=== PATIENT | male | born 1970 | race Caucasian/White ===

== ENCOUNTER → 2021-07-27 | Outpatient (CLI) | payer MEDICAID, OTHER ==
--- NOTE | 2021-07-27 10:10 | Diagnostic Imaging Report ---
INDICATION: Lung abnormality. COMPARISON: I have no priors. FINDINGS: There is a small mass in the right lower lobe posterolaterally measuring 2.3 cm in long axis. If not already worked up, correlative chest CT recommended. Hilar and mediastinal contours were normal. The lungs are free of pneumonia or edema. No free air beneath the diaphragms. IMPRESSION: Indeterminate right lower lobe lung mass. Chest CT recommended if this has not already been performed at an outside facility. Dictated by: Dictated on workstation # [id number]
== END ==
LOC: RAD 08:13
PROVIDERS: ATTEND Nurse Practitioner Family
DX: R91.8 Other nonspecific abnormal finding of lung field (principal)
CPT/HCPCS: 71046

== ENCOUNTER → 2021-08-04 | Outpatient (CLI) | payer MEDICAID ==
--- NOTE | 2021-08-04 13:18 | Diagnostic Imaging Report ---
PET/CT. INDICATION: Lung mass TECHNIQUE: PET/CT imaging was obtained from the base of the skull through the pelvis after the administration of 13.0 mCi of F-18 fluorodeoxyglucose in the right antecubital fossa. Limited CT imaging was utilized for localization and attenuation correction purposes. The low energy CT utilized for attenuation correction is not considered to be of high enough spatial resolution to allow in and of itself a separate anatomical analysis. Height is 6'. Weight 160 pounds Blood glucose level 123. There are no prior head CT exams or cross-sectional imaging studies available for comparison. The plain film examination of the chest performed on 07/27/2021 noted a 2.3 cm mass in the right lung base. This finding was also present on the prior plain film chest exam of 05/13/2021 from [facility]. On this study the lesion in the right lung base is again identified. This area is not hypermetabolic with a maximum SUV of 1.1. Consequently I do suspect that this is a benign process. If more distant exams are available, they would be helpful for comparison. If there are no previous studies, then a followup CT chest exam in 6 months should be obtained. There is a small focus of slight increased hypermetabolic activity in the right hilum. This has a maximum SUV of 2.6. There is no definite correlate seen on the CT images and this may be secondary to vascular structure.. There is asymmetric uptake of the radiopharmaceutical by the left lobe of the thyroid. The left lobe does not appear to be enlarged and has a maximum measurement of 3.8. There is only mild uptake by the right lobe of the thyroid. There is no definite mass identified but ultrasound of the thyroid gland would be recommended for further study. There is no other hypermetabolic activity to suggest the presence of malignancy. Physiologic activity is seen in the brain, the kidneys, the bowel and the bladder. The CT images failed to show any sign of an acute abnormality. IMPRESSION: 1. The nodule in the right lower lobe seen previously is not hypermetabolic and most likely benign. Recommendations as above. 2. The asymmetry of the uptake within the left thyroid gland compared to the right is of uncertain etiology. There is no abnormality identified on the CT images but ultrasound would be recommended for further study. 3. There is no other hypermetabolic activity to suggest the presence of malignancy. 4. There is no sign of an acute abnormality. Dictated by: Dictated on workstation # [id number]
== END ==
LOC: RAD 09:45
PROVIDERS: ATTEND Nurse Practitioner Family
DX: R91.8 Other nonspecific abnormal finding of lung field (principal)
CPT/HCPCS: 78815; A9552

== ENCOUNTER 2022-08-03 17:34 | Emergency (ER) | payer MEDICAID ==
[~2022-08-03] VITALS: Ht 182.8 cm; Wt 58.9 kg
[2022-08-03] MEDS ORDERED: ONDANSETRON 4 MG/2 ML (SDV) Z0FRAN IVP ONE (17:45)
[2022-08-03 17:51] LABS: BASOPHILS % (AUTO) 0 % (0-10); EOSINOPHILS % (AUTO) 1 % (0-10); HEMATOCRIT 40 % (40-54); HEMOGLOBIN 14.1 g/dL (13.3-17.7); LYMPHOCYTES # (AUTO) 1.5 10^3/uL (1.0-4.0); LYMPHOCYTES % (AUTO) 28 % (12-44); MEAN CORPUSCULAR HEMOGLOBIN 31 pg (25-34); MEAN CORPUSCULAR HGB CONC 36 g/dL (32-36); MEAN CORPUSCULAR VOLUME 85 fL (80-99); MEAN PLATELET VOLUME 9.9 fL (9.0-12.2); MONOCYTES # (AUTO) 0.4 10^3/uL (0.0-1.0); MONOCYTES % (AUTO) 7 % (0-12); NEUTROPHILS # (AUTO) 3.6 10^3/uL (1.8-7.8); NEUTROPHILS % (AUTO) 65 % (42-75); PLATELET COUNT 196 10^3/uL (130-400); WHITE BLOOD COUNT 5.5 10^3/uL (4.3-11.0)
[2022-08-03] MEDS ORDERED: fentaNYL INJ 100 MCG/2 ML AMP IVP ONE (18:00)
[2022-08-03] MEDS ORDERED: NS IV 1000 ML 1,000 ML IV SCH (18:00)
[2022-08-03 18:02] LABS: ALBUMIN 3.9 GM/DL (3.2-4.5)
[2022-08-03 18:03] LABS: POTASSIUM 3.6 MMOL/L (3.6-5.0)
[2022-08-03 18:04] LABS: CALCIUM 8.7 MG/DL (8.5-10.1)
[2022-08-03 18:05] LABS: INR 1.2 (0.8-1.4); PROTHROMBIN TIME PATIENT 15.4 SEC (12.2-14.7); TOTAL PROTEIN 6.2 GM/DL (6.4-8.2)
[2022-08-03 18:07] LABS: BILIRUBIN,TOTAL 0.4 MG/DL (0.1-1.0)
[2022-08-03 18:09] LABS: CREATININE SERUM 1.2 MG/DL (0.60-1.30)
--- NOTE | 2022-08-03 18:09 | ED Chest Pain ---
General Chief Complaint: Chest Pain Stated Complaint: CHEST PAIN Nursing Triage Note: PT TO RM 10 BY WC WITH COMPLAINT OF CP. STATES STARTED WITH IN THE LAST HOUR. PT IS COMPLAINIG OF CP, SOA, DIZZINESS. HAD APPENDIX TAKEN OUT TWO WEEKS AGO. LAST USED COCAINE A WEEK AGO. Source: patient Exam Limitations: no limitations (CHRISTINE CELAYA MD) History of Present Illness Date Seen by Provider: Aug 03, 2022 Time Seen by Provider: 17:44 Initial Comments This 52-year-old gentleman presents to the emergency room by private vehicle with complaint of severe chest pain that is stabbing in nature just left of the sternum. Onset was about 45 minutes prior to my interview. He rates the pain as 10/10. He has had some associated dizziness and nausea. He has several issues in his recent past medical history that may be contributing. He reports appendectomy at [facility] on July 23. He has had diffuse abdominal pain ever since that surgery. He also reports using IV cocaine about 1 week ago and drinking a shot of hard alcohol today. He reports a history of lung nodules and states his most recent imaging showed an increase in size. He also is a type II diabetic who has not taken any insulin for the past week. (CHRISTINE CELAYA MD) Initial Comments Agree with history (SOM SAGE MD) Allergies and Home Medications Allergies Coded Allergies: No Known Drug Allergies (Unverified , 08/03/22) Patient Home Medication List Home Medication List Reviewed: Yes (CHRISTINE CELAYA MD) Home Medication List Reviewed: Yes (SOM SAGE MD) Review of Systems Review of Systems Constitutional: no symptoms reported EENTM: No Symptoms Reported Respiratory: See HPI, Shortness of Air Cardiovascular: See HPI, Chest Pain, Lightheadedness Gastrointestinal: See HPI, Nausea Genitourinary: No Symptoms Reported Musculoskeletal: no symptoms reported Skin: no symptoms reported Psychiatric/Neurological: See HPI Endocrine: No Symptoms Reported Hematologic/Lymphatic: No Symptoms Reported (CHRISTINE CELAYA MD) Past Wqamiig-Xxazjd-Dueiub Hx Patient Social History Tobacco Use?: Yes Tobacco type used: Cigarettes Smoking Status: Current Everyday Smoker Use of E-Cig and/or Vaping dev: No Substance use?: Yes Substance type: Opiates/Opioids Additional substance use comme: COCAINE Alcohol Use?: No Pt feels they are or have been: No (CHRISTINE CELAYA MD) Past Medical History Surgeries: Yes Appendectomy Respiratory: Yes (Pulmonary nodule) Cardiac: No Neurological: No Reproductive Disorders: No Genitourinary: No Gastrointestinal: Yes Musculoskeletal: No Endocrine: Yes Diabetes, Insulin dep (Type II) HEENT: No Cancer: No Psychosocial: Yes (Polysubstance abuse) Integumentary: No (CHRISTINE CELAYA MD) Physical Exam Vital Signs Vital Signs - First Documented 08/03/22 17:34 Pulse 80 Resp 31 B/P (MAP) 117/89 (98) Pulse Ox 100 O2 Delivery Room Air (SOM SAGE MD) Vital Signs Capillary Refill : Less Than 3 Seconds (CHRISTINE CELAYA MD) Height, Weight, BMI Height: '" Weight: lbs. oz. kg; 17.00 BMI Method: General Appearance: WD/WN, Moderate Distress, Thin HEENT: PERRL/EOMI, Normal ENT Inspection, Other (Moist mucous membrane) Neck: Normal Inspection; No JVD Respiratory: Chest Non Tender, Lungs Clear, Normal Breath Sounds, No Accessory Muscle Use, No Respiratory Distress Cardiovascular: Regular Rate, Rhythm, No Edema, No Murmur Gastrointestinal: Soft; No Distended; Guarding, Tenderness (Diffuse), Other (Incisions and bruising appear to be healing as expected for postoperative day 11) Extremity: Normal Inspection, No Pedal Edema Neurologic/Psychiatric: Alert, Oriented x3, No Motor/Sensory Deficits, Normal 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/Affect, 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 Norm as Tested Skin: Normal Color, Warm/Dry (CHRISTINE CELAYA MD) Gastrointestinal: Tenderness (Diffuse) (SOM SAGE MD) Progress/Results/Core Measures Results/Orders Lab Results Laboratory Tests Test 08/03/22 17:35 08/03/22 18:53 Range/Units White Blood Count 5.5 4.3-11.0 10^3/uL Red Blood Count 4.63 4.30-5.52 10^6/uL Hemoglobin 14.1 13.3-17.7 g/dL Hematocrit 40 40-54 % Mean Corpuscular Volume 85 80-99 fL Mean Corpuscular Hemoglobin 31 25-34 pg Mean Corpuscular Hemoglobin Concent 36 32-36 g/dL Red Cell Distribution Width 12.8 10.0-14.5 % Platelet Count 196 130-400 10^3/uL Mean Platelet Volume 9.9 9.0-12.2 fL Immature Granulocyte % (Auto) 0 % Neutrophils (%) (Auto) 65 42-75 % Lymphocytes (%) (Auto) 28 12-44 % Monocytes (%) (Auto) 7 0-12 % Eosinophils (%) (Auto) 1 0-10 % Basophils (%) (Auto) 0 0-10 % Neutrophils # (Auto) 3.6 1.8-7.8 10^3/uL Lymphocytes # (Auto) 1.5 1.0-4.0 10^3/uL Monocytes # (Auto) 0.4 0.0-1.0 10^3/uL Eosinophils # (Auto) 0.0 0.0-0.3 10^3/uL Basophils # (Auto) 0.0 0.0-0.1 10^3/uL Immature Granulocyte # (Auto) 0.0 0.0-0.1 10^3/uL Prothrombin Time 15.4 H 12.2-14.7 SEC INR Comment 1.2 0.8-1.4 Activated Partial Thromboplast Time 43 H 24-35 SEC D-Dimer 0.31 0.00-0.49 UG/ML Sodium Level 134 L 135-145 MMOL/L Potassium Level 3.6 3.6-5.0 MMOL/L Chloride Level 100 98-107 MMOL/L Carbon Dioxide Level 23 21-32 MMOL/L Anion Gap 11 5-14 MMOL/L Blood Urea Nitrogen 12 7-18 MG/DL Creatinine 1.20 0.60-1.30 MG/DL Estimat Glomerular Filtration Rate 72 BUN/Creatinine Ratio 10 Glucose Level 322 H 70-105 MG/DL Calcium Level 8.7 8.5-10.1 MG/DL Corrected Calcium 8.8 8.5-10.1 MG/DL Magnesium Level 2.0 1.6-2.4 MG/DL Total Bilirubin 0.4 0.1-1.0 MG/DL Aspartate Amino Transf (AST/SGOT) 80 H 5-34 U/L Alanine Aminotransferase (ALT/SGPT) 41 0-55 U/L Alkaline Phosphatase 87 40-136 U/L Myoglobin 30.6 10.0-92.0 NG/ML Troponin I < 0.028 <0.028 NG/ML C-Reactive Protein High Sensitivity 0.11 0.00-0.50 MG/DL Total Protein 6.2 L 6.4-8.2 GM/DL Albumin 3.9 3.2-4.5 GM/DL Lipase 156 H 8-78 U/L Serum Alcohol < 10 <10 MG/DL Urine Opiates Screen NEGATIVE NEGATIVE Urine Oxycodone Screen NEGATIVE NEGATIVE Urine Methadone Screen NEGATIVE NEGATIVE Urine Propoxyphene Screen NEGATIVE NEGATIVE Urine Barbiturates Screen NEGATIVE NEGATIVE Ur Tricyclic Antidepressants Screen NEGATIVE NEGATIVE Urine Phencyclidine Screen NEGATIVE NEGATIVE Urine Amphetamines Screen NEGATIVE NEGATIVE Urine Methamphetamines Screen NEGATIVE NEGATIVE Urine Benzodiazepines Screen NEGATIVE NEGATIVE Urine Cocaine Screen POSITIVE H NEGATIVE Urine Cannabinoids Screen NEGATIVE NEGATIVE (SOM SAGE MD) My Orders Orders - SOM SAGE MD Iohexol Injection (Omnipaque 350 Mg/Ml 1 (08/03/22 18:30) Received Contrast (Hold Metformin- Contr (08/03/22 18:30) Sodium Chloride Flush (Catheter Flush Sy (08/03/22 18:30) Iohexol Injection (Omnipaque 350 Mg/Ml 1 (08/03/22 18:45) Received Contrast (Hold Metformin- Contr (08/03/22 18:45) Ns (Ivpb) (Sodium Chloride 0.9% Ivpb Bag (08/03/22 18:45) Ketorolac Injection (Toradol Injection) (08/03/22 19:00) Ketorolac Injection (Toradol Injection) (08/03/22 19:15) (OSM SAGE MD) Medications Given in ED Current Medications Medications Dose Ordered Sig/Sophie Route Start Time Stop Time Status Last Admin Dose Admin Aspirin 324 mg ONCE ONCE PO 08/03/22 18:15 08/03/22 18:16 DC 08/03/22 18:22 324 MG Fentanyl Citrate 75 mcg ONCE ONCE IVP 08/03/22 18:00 08/03/22 18:01 DC 08/03/22 18:09 75 MCG Iohexol 100 ml ONCE ONCE IV 08/03/22 18:30 08/03/22 18:31 DC 08/03/22 18:40 80 ML Ketorolac Tromethamine 15 mg ONCE ONCE IVP 08/03/22 19:00 08/03/22 19:01 DC 08/03/22 19:19 15 MG Ondansetron HCl 8 mg ONCE ONCE IVP 08/03/22 17:45 08/03/22 17:46 DC 08/03/22 18:06 8 MG Sodium Chloride 10 ml NEEDED PRN IV 08/03/22 18:30 08/03/22 18:41 10 ML Sodium Chloride 100 ml ONCE ONCE IV 08/03/22 18:45 08/03/22 18:46 DC 08/03/22 18:41 80 ML (SOM SAGE MD) Vital Signs/I&O 08/03/22 17:34 Pulse 80 Resp 31 B/P (MAP) 117/89 (98) Pulse Ox 100 O2 Delivery Room Air (SOM SAGE MD) Blood Pressure Mean: 98 Progress Progress Note : Time: 18:12 Progress Note Patient was interviewed and examined. Chest pain work-up is underway. We anticipate including a CT angio of the chest with not angio abdomen pelvis CT with to evaluate his chest and abdominal pain. Fentanyl 75 mcg is being given for pain control. Zofran was ordered for nausea. Aspirin will also be administered. Report was given to Dr. Kerns for shift change. (CHRISTINE CELAYA MD) Progress Note : Progress Note Sign out from day physician: - ACS rule out - UDS is positive for cocaine - Gave Toradol for pain - CT Chest/ ABD: non-acute findings as per report. Ileus versus gastroenteritis - Discussed with hospitalist and surgeon, advised to follow up with surgeon in [place] who did the surgery. There is no acute findings on CT for admission. - Advised Naproxen for pain, and has percocet at home for severe pain. Pt also has Zofran and Pepcid at home - [place] diet advised, follow-up with surgeon in [place] who did the surgery, adequate fluid hydration advised, prescription for Reglan to be taken every 8 hours as needed for nausea and vomiting. Patient has Zofran at home and can alternate with this for nausea and vomiting. Advised thnm-npr-pqzaiip naproxen capsules 440 mg twice a day for pain. Patient has pain medication that was g iven after discharge from his surgery, and advised to take that for severe pain. Follow-up with PCP and surgeon within the next 3 to 5 days. Return to ER as needed. -The patient was seen in the ED, and treated appropriately to presentation at a specific point in time. Patient is informed that there is a possibility that disease and illness can evolve and change in acuity rapidly or slowly after patient is discharged from the ER. Precautionary advice given to the patient for immediate return to ER if symptoms worsen or do not resolve, and to seek emergency care sooner rather than later. Pt also advised on the importance of PCP follow up and compliance with management and follow up plan with PCP and/or specialist, as this is part of the management plan. Pt verbally expressed understanding. (SOM SAGE MD) Initial ECG Impression Date: Aug 03, 2022 Initial ECG Impression Time: 17:39 Initial ECG Rate: 73 Initial ECG Rhythm: Normal Sinus Initial ECG Intervals: Normal Comment Normal sinus rhythm with no ST elevation or depression. No abnormal intervals or axis deviation. (CHRISTINE CELAYA MD) Diagnostic Imaging Diagonstic Imaging: Xray, CT Plain Films/CT/US/NM/MRI: chest, abdomen Comments [facility]. [place], [place] NAME: [facility] REC#: [id number] PT STATUS: REG ER : 1970 PHYSICIAN: CHRISTINE CELAYA MD ADMIT DATE: 08/03/22/ER Signed Date of Exam:08/03/22 CT DAISHA CHEST/NOANG ABD-PELV W INDICATION: 52-year-old male presents with chest pain, shortness of breath, and dizziness. Patient is status post appendectomy two weeks prior to the study. EXAMINATION: CTA chest, abdomen, and pelvis TECHNIQUE: Thin axial sections through the chest, abdomen, and pelvis are obtained following intravenous contrast bolus. Multiplanar MIP images were reconstructed and reviewed. All CT scans use one or more of the following dose optimizing techniques: Automated exposure control, MA and/or KvP adjustment based on patient size and exam type or iterative reconstruction. COMPARISONS: None. FINDINGS: There is no axillary adenopathy. There is also no mediastinal or hilar adenopathy. Cardiac contour is normal. Thoracic aortic contour is also normal with no evidence of aneurysm or dissection. Pulmonary outflow tract as well as the right and left pulmonary arteries, their segmental and subsegmental branches are patent with no evidence of intraluminal thrombus to suggest pulmonary embolism. Lungs are essentially clear with no consolidation, effusion, or pneumothorax. There is a 17 mm pleural-based nodule in the lateral right lower lobe. Liver shows uniform attenuation. Gallbladder is nondistended. Spleen and GE junction are normal. Stomach and duodenal sweep are unremarkable. Paucity of mesenteric fat as well as beam hardening artifact limit assessment of the abdomen and pelvis. Pancreas shows sharp margins. Adrenals are normal. Kidneys appear normal in size, position, and contour with symmetrical perfusion and excretion of contrast. Both ureters are seen intermittently through their course and appear grossly unremarkable. Filled bladder is also normal. Nonopacified loops of small bowel show some fluid-filled loops with a few scattered air-fluid levels, but no significant distention. Large bowel contains a moderate amount of fecal load. Clips in the right lower quadrant are consistent with the patient's known history of recent appendectomy. There is no definite free air, free fluid, or adenopathy. Bone windows show no overall gross abnormalities. There are some multilevel hypertrophic facet changes. IMPRESSION: 1. No CT angiographic evidence for aortic aneurysm, dissection, or pulmonary embolism. 2. Lungs are clear with no consolidation, effusion, or pneumothorax. 3. There is a 17 mm subpleural nodule in the right lower lobe. Short-term follow-up in 1-2 months is recommended. Perhaps a PET scan may be of further value. This may be amenable to image-guided biopsy. 4. Extensive beam hardening artifact as well as paucity of mesenteric fat limit assessment of the solid and luminal viscera of the abdomen and pelvis. 5. Postoperative changes consistent with an appendectomy are again noted. 6. No evidence of cholecystitis or obstructive uropathy. No definite areas of peritoneal inflammation seen. 7. Some fluid-filled loops of small bowel with a few air-fluid levels most likely represent an element of ileus versus mild gastroenteritis. Additional nonemergent findings as described above. Dictated by: Dictated on workstation # [id number] Dict: 08/03/22 1847 Trans: 08/03/221905 [id number] Interpreted by: NENA DELEON MD Electronically signed by: NENA DELEON MD 08/03/221905 [facility]. [place], [place] NAME: ESVIN SHEARER REC#: [id number] PT STATUS: REG ER : 1970 PHYSICIAN: CHRISTINE CELAYA MD ADMIT DATE: 08/03/22/ER Draft Date of Exam:08/03/22 CHEST 1 VIEW, AP/PA ONLY EXAMINATION: Chest 1 view HISTORY: Chest pain COMPARISON: 07/27/2021 FINDINGS: The lungs are clear without edema or pneumonia. No pleural effusion or pneumothorax. Heart size is normal. There is an unchanged 2 cm nodule in the right base. IMPRESSION: 1. Clear lungs. Dictated on workstation # [id number] Dict: 08/03/221824 Trans: 08/03/221826 [facility] [id number] Interpreted by: TORY GRAHAM MD Electronically signed by: (SOM SAGE MD) Departure Impression Primary Impression: Cocaine abuse Additional Impressions: Post-op pain Ruled out for myocardial infarction Disposition: HOME, SELF-CARE Condition: Stable Departure-Patient Inst. Patient Instructions: Chest Pain That Is Not Caused by the Heart (DC), Heart Healthy Diet, Managing Pain After Surgery, Cocaine Use Disorder Add. Discharge Instructions: [place] diet advised, follow-up with surgeon in [place] who did the surgery, adequate fluid hydration advised, prescription for Reglan to be taken every 8 hours as needed for nausea and vomiting. Patient has Zofran at home and can alternate with this for nausea and vomiting. Advised emfk-wto-hgqstww naproxen capsules 440 mg twice a day for pain. Patient has pain medication that was given after discharge from his surgery, and advised to take that for severe pain. Follow-up with PCP and surgeon within the next 3 to 5 days. Return to ER as needed. Patient has Pepcid at home and advised to take daily All discharge instructions reviewed with patient and/or family. Voiced understanding. Scripts Metoclopramide HCl (Reglan) 10 Mg Tablet 10 MG PO Q8H PRN for NAUSEA/VOMITING for 3 Days, #10 TAB Prov: SOM SAGE MD 08/03/22 CHRISTINE CELAYA MD Aug 03, 2022 18:09 SOM SAGE MD Aug 03, 2022 18:54
[2022-08-03 18:15] LABS: LIPASE 156 U/L (8-78)
[2022-08-03] MEDS ORDERED: ASPIRIN 81 MG CHEW (CHILDREN'S ASA) PO ONE (18:15)
--- NOTE | 2022-08-03 18:27 | Diagnostic Imaging Report ---
EXAMINATION: Chest 1 view HISTORY: Chest pain COMPARISON: 07/27/2021 FINDINGS: The lungs are clear without edema or pneumonia. No pleural effusion or pneumothorax. Heart size is normal. There is an unchanged 2 cm nodule in the right base. IMPRESSION: 1. Clear lungs. Dictated by: Dictated on workstation # [id number]
[2022-08-03] MEDS ORDERED: CATHETER FLUSH 10 ML SYR IV PRN (18:30)
[2022-08-03] MEDS ORDERED: HOLD METFORMIN - RECEIVED CONTRAST 20 ML VIAL IV SCH ×2 (18:30→18:45)
[2022-08-03] MEDS ORDERED: IOHEXOL 350 MG/ML 100 ML (OMNIPAQUE 350) VIAL IV ONE ×2 (18:30→18:45)
[2022-08-03] MEDS ORDERED: NS 100 ML (IVPB) BAG IV ONE (18:45)
[2022-08-03] MEDS ORDERED: KETOROLAC 15 MG/ML VIAL IVP ONE (19:00)
--- NOTE | 2022-08-03 19:05 | Diagnostic Imaging Report ---
INDICATION: 52-year-old male presents with chest pain, shortness of breath, and dizziness. Patient is status post appendectomy two weeks prior to the study. EXAMINATION: CTA chest, abdomen, and pelvis TECHNIQUE: Thin axial sections through the chest, abdomen, and pelvis are obtained following intravenous contrast bolus. Multiplanar MIP images were reconstructed and reviewed. All CT scans use one or more of the following dose optimizing techniques: Automated exposure control, MA and/or KvP adjustment based on patient size and exam type or iterative reconstruction. COMPARISONS: None. FINDINGS: There is no axillary adenopathy. There is also no mediastinal or hilar adenopathy. Cardiac contour is normal. Thoracic aortic contour is also normal with no evidence of aneurysm or dissection. Pulmonary outflow tract as well as the right and left pulmonary arteries, their segmental and subsegmental branches are patent with no evidence of intraluminal thrombus to suggest pulmonary embolism. Lungs are essentially clear with no consolidation, effusion, or pneumothorax. There is a 17 mm pleural-based nodule in the lateral right lower lobe. Liver shows uniform attenuation. Gallbladder is nondistended. Spleen and GE junction are normal. Stomach and duodenal sweep are unremarkable. Paucity of mesenteric fat as well as beam hardening artifact limit assessment of the abdomen and pelvis. Pancreas shows sharp margins. Adrenals are normal. Kidneys appear normal in size, position, and contour with symmetrical perfusion and excretion of contrast. Both ureters are seen intermittently through their course and appear grossly unremarkable. Filled bladder is also normal. Nonopacified loops of small bowel show some fluid-filled loops with a few scattered air-fluid levels, but no significant distention. Large bowel contains a moderate amount of fecal load. Clips in the right lower quadrant are consistent with the patient's known history of recent appendectomy. There is no definite free air, free fluid, or adenopathy. Bone windows show no overall gross abnormalities. There are some multilevel hypertrophic facet changes. IMPRESSION: 1. No CT angiographic evidence for aortic aneurysm, dissection, or pulmonary embolism. 2. Lungs are clear with no consolidation, effusion, or pneumothorax. 3. There is a 17 mm subpleural nodule in the right lower lobe. Short-term follow-up in 1-2 months is recommended. Perhaps a PET scan may be of further value. This may be amenable to image-guided biopsy. 4. Extensive beam hardening artifact as well as paucity of mesenteric fat limit assessment of the solid and luminal viscera of the abdomen and pelvis. 5. Postoperative changes consistent with an appendectomy are again noted. 6. No evidence of cholecystitis or obstructive uropathy. No definite areas of peritoneal inflammation seen. 7. Some fluid-filled loops of small bowel with a few air-fluid levels most likely represent an element of ileus versus mild gastroenteritis. Additional nonemergent findings as described above. Dictated by: Dictated on workstation # [id number]
[2022-08-03 19:11] LABS: AMPHETAMINE SCREEN, URINE NEGATIVE (NEGATIVE); BARBITURATE SCREEN URINE NEGATIVE (NEGATIVE); BENZODIAZEPINES SCREEN URINE NEGATIVE (NEGATIVE); CANNABINOID SCREEN, URINE NEGATIVE (NEGATIVE); COCAINE SCREEN URINE POSITIVE (NEGATIVE); METHADONE STAT NEGATIVE (NEGATIVE); OPIATE SCREEN URINE NEGATIVE (NEGATIVE); OXYCODONE STAT NEGATIVE (NEGATIVE); PROPOXYPHENE STAT NEGATIVE (NEGATIVE); TRICYCLIC ANTIDEPRESSANTS SCRE NEGATIVE (NEGATIVE)
[2022-08-03] MEDS ORDERED: KETOROLAC 30 MG/ML VIAL ONE (19:15)
[2022-08-03] MEDS ORDERED: METO-310 PO (20:05)
[2022-08-03 20:23] VITALS: BP 121/78
== END 2022-08-03 20:22 | disposition home or self-care (01) ==
LOC: EDUNIT# 17:37 → ER 17:38
DX: F14.10 Cocaine abuse, uncomplicated (principal); G89.18 Other acute postprocedural pain; R10.84 Generalized abdominal pain; R11.2 Nausea with vomiting, unspecified; E11.9 Type 2 diabetes mellitus without complications; F17.210 Nicotine dependence, cigarettes, uncomplicated; Z91.14 Patient's other noncompliance with medication regimen; Z79.4 Long term (current) use of insulin
CPT/HCPCS: 71045; 71275; 74177; 80053; 80306; 83690; 83735; 83874; 84484; 85025; 85379; 85610; 85730; 86141; 93005; 93041; 99284; G0480; 36415; 80320